=== PATIENT | female | born 1955 | race Caucasian/White ===

== ENCOUNTER 2016-08-21 14:24 | Emergency (ER) | payer BC ==
[~2016-08-21 14:24] MED LIST: FLEXERIL PO; NAPROSYN500 MG PO
== END 2016-08-21 15:03 | disposition home or self-care (01) ==
LOC: CED 14:24 → CFTX 14:24
DX: J06.9 Acute upper respiratory infection, unspecified (principal); F17.200 Nicotine dependence, unspecified, uncomplicated
CPT/HCPCS: 99283